=== PATIENT | male | born 1940 | race Caucasian/White ===

== ENCOUNTER → 2016-06-20 | Outpatient (CLI) | payer MEDICARE, OTHER ==
[~2016-06-20] VITALS: Ht 182.9 cm; Wt 81.6 kg
[~2016-06-20] MED LIST: LIDOCAINE 1% / SOD BICARB 8.4% 20 ML VIAL. IJ ONE; LIPA1CAP2 PO
[2016-06-20 09:54] VITALS: BP 137/78
--- NOTE | 2016-06-20 11:41 | OP ---
DATE OF SURGERY: 06/20/2016 OPERATION: Transrectal ultrasound and prostate needle biopsies. SURGEON: Arabella Dias MD. ANESTHESIA: Local. PREOPERATIVE DIAGNOSIS: Elevated prostate-specific antigen and family history of prostate cancer. POSTOPERATIVE DIAGNOSIS: Elevated prostate-specific antigen and family history of prostate cancer. INDICATIONS: The patient is a very pleasant 75-year-old white male with history of elevated PSA this year of 5.98. Several years ago, it was under 4. The patient also with history of prostate cancer in one of his brothers. On rectal examination, the patient has no nodules. I discussed with the patient the options, alternatives, benefits, risks and possible complications of watchful waiting versus transrectal ultrasound of prostate and needle biopsy to rule adenocarcinoma of the prostate. The patient understands this and does wish to proceed with the operation. DESCRIPTION OF PROCEDURE: After obtaining informed consent, the patient was taken to the ultrasound suite and placed in the left lateral decubitus position. The patient had taken his antibiotics preprocedurally and he has antibiotics to take post-procedurally. Rectal examination was then performed. The patient has good sphincter tone. Prostate smooth, nontender, without nodules, overall size 30 grams by palpation. Following this, transrectal ultrasound was then performed with the biplanar probe. Prostate was inspected in both transverse and sagittal planes. A bilateral prostatic block of 1% lidocaine was placed. Prostate size was then calculated and found to be 50 cubic cm. No obvious hypoechoic areas were identified. Following this, Sextant biopsies were then obtained with the [employer] biopty gun and biopty needle and biopsies sent for pathologic analysis. Following this, the probe was removed from the patient. The patient tolerated the procedure very well. The patient only had moderate amount of oozing from the biopsy sites. The patient was allowed to rest and then left the procedure room in good condition. The patient was given post-procedure instructions and told to take as antibiotics post-procedurally also to cover him for the procedure as he had taken them also preoperatively. We will contact the patient back with the results of his biopsies as they become available and he will follow up also in Urology office in 2-4 weeks to discuss the results and proceed accordingly. ARABELLA DIAS MD DR: MINAL/daniella JOB#: [id number] / [id number]
== END | disposition home or self-care (01) ==
LOC: US 09:16
PROVIDERS: ATTEND Urology
DX: R97.20 Elevated prostate specific antigen [PSA] (principal)
CPT/HCPCS: 55700